=== PATIENT | male | born 1985 | race Caucasian/White ===

== ENCOUNTER 2022-01-01 15:07 | Emergency (ER) | payer SELFPAY | END 2022-01-01 16:24 | disposition home or self-care (01) | LOC: BURERS 15:07 | DX: R09.81 Nasal congestion (principal); I10 Essential (primary) hypertension; F17.200 Nicotine dependence, unspecified, uncomplicated | CPT/HCPCS: 99283 ==

== ENCOUNTER 2022-03-19 18:39 | Emergency (ER) | payer SELFPAY ==
[2022-03-19 19:32] LABS: MONO NEGATIVE CONTROL ZONE White (Negative) (White); MONO POSITIVE CONTROL Pink Line (Positive) (PINK/RED); Mononucleosis NEGATIVE (NEGATIVE)
== END 2022-03-19 19:18 | disposition home or self-care (01) ==
LOC: BURERS 18:39
DX: J01.90 Acute sinusitis, unspecified (principal); B96.89 Other specified bacterial agents as the cause of diseases classified elsewhere; I10 Essential (primary) hypertension; F17.210 Nicotine dependence, cigarettes, uncomplicated
CPT/HCPCS: 36415; 86308; 87081; 87430; 87804; 99283

== ENCOUNTER 2022-05-27 17:38 | Emergency (ER) | payer SELFPAY | END 2022-05-27 20:16 | disposition home or self-care (01) | LOC: BURERS 17:38 | DX: M79.604 Pain in right leg (principal); M79.605 Pain in left leg; M54.16 Radiculopathy, lumbar region; S30.0XXA Contusion of lower back and pelvis, initial encounter; S90.122A Contusion of left lesser toe(s) without damage to nail, initial encounter; F17.210 Nicotine dependence, cigarettes, uncomplicated; W10.9XXA Fall (on) (from) unspecified stairs and steps, initial encounter | CPT/HCPCS: 72131 ==

== ENCOUNTER 2022-06-04 19:34 | Emergency (ER) | payer OTHER, SELFPAY ==
[~2022-06-04 19:34] MED LIST: Iopamidol 370 76% 100 ML VIAL ONE
[2022-06-04] MEDS ORDERED: Ketorolac Tromethamine 30 MG/ML VIAL ONE (19:42)
[2022-06-04 19:51] LABS: #Basophils 0.1 thou/uL (0.0-0.2); #Eosinphils 0.2 thou/uL (0.0-0.7); #Lymphocytes 3.2 thou/uL (1.20-3.40); #Monocytes 0.6 thou/uL (0.11-0.59); #Neutrophils 7.8 thou/uL (1.40-6.50); %Basophils 0.8 % (0.0-1.0); %Eosinophils 1.3 % (0.0-10.0); %Lymphocytes 27.2 % (21.0-51.0); %Neutrophils 65.7 % (42.0-75.0); Hemoglobin 16.7 g/dL (14.0-18.0); Mean Corpuscular HGB CONC 36.1 g/dL (32.0-36.0); Mean Corpuscular Hemoglobin 31.4 pg (27.0-31.0); Mean Corpuscular Volume 87.1 fl (78.0-98.0); Mean Platelet Volume 8.2 fL (7.4-10.4); Platelet Count 248 10x3/uL (130-400); RBC Distribution Width 11.4 % (11.5-14.5); Red Blood Cell (RBC) Count 5.32 mill/uL (4.70-6.10); White Blood Cell (WBC) Count 11.9 10x3/uL (4.8-10.8)
[2022-06-04 20:04] LABS: Anion Gap 16 mmol/L (10-20); BUN (Urea Nitrogen) 20 mg/dL (8.9-20.6); Calc. Creatinine Clearance 0 mL/min (70-130); Calcium 9.8 mg/dL (7.8-10.44); Carbon Dioxide 22 mmol/L (22-29); Chloride 106 mmol/L (98-107); Estimated GFR 84; Glucose 116 mg/dL (70-105); Potassium 3.6 mmol/L (3.5-5.1); Sodium 140 mmol/L (136-145)
== END 2022-06-04 22:30 | disposition home or self-care (01) ==
LOC: BURERS 19:34
DX: S42.032A Displaced fracture of lateral end of left clavicle, initial encounter for closed fracture (principal); S30.810A Abrasion of lower back and pelvis, initial encounter; F17.210 Nicotine dependence, cigarettes, uncomplicated; V29.99XA Rider (driver) (passenger) of other motorcycle injured in unspecified traffic accident, initial encounter
CPT/HCPCS: 70450; 70486; 71260; 72125; 74177; 80048; 80307; 85025; 96365; 96366; J1885; Q9967